=== PATIENT | female | born 1990 | race Caucasian/White ===

== ENCOUNTER 2017-06-02 23:57 | Emergency (ER) | payer SELFPAY ==
[2017-06-03] MEDS ORDERED: Amoxicillin/Clavulanate TAB* 875 MG PO ONE (01:06)
[2017-06-03] MEDS ORDERED: Tetan/Diph/Pertus SYR(Tdap)* 0.5 ML SYR(BOOSTRIX) use SYR IM ONE (01:17)
--- NOTE | 2017-06-03 01:19 | ED ---
Bite Injury/Animal - HPI Summary HPI Summary: 26F presents with dog bite to left thumb and index finger. 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 Her tetanus was in 2009. She cleaned area with chlorhexidine and betadaine. She has had rabies ppx. the end up euthanizing the dog. She denies any allergies. She has no medically conditions. She does not believe dog has rabies. - History of Current Complaint Chief Complaint: EDAnimalBite Stated Complaint: DOG BITE Time Seen by Provider: 06/03/17 01:06 Pain Intensity: 5 - Allergies/Home Medications Allergies/Adverse Reactions: Allergies Allergy/AdvReac Type Severity Reaction Status Date / Time No Known Allergies Allergy Verified 06/03/17 00:08 PMH/Surg Hx/FS Hx/Imm Hx Endocrine/Hematology History: Denies: Hx Anticoagulant Therapy Cardiovascular History: Denies: Hx Hypertension - Immunization History Date of Tetanus Vaccine: within 5 years Immunizations Up to Date: Yes Infectious Disease History: No Infectious Disease History: Denies: Traveled Outside the [place] in Last 30 Days - Family History Known Family History: Negative: Diabetes - Social History Alcohol Use: Occasionally Substance Use Type: Reports: None Smoking Status (MU): Never Smoked Tobacco Review of Systems Negative: Fever Negative: Chest Pain Negative: Shortness Of Breath Positive: Other - abrasions to left thumb and index finger All Other Systems Reviewed And Are Negative: Yes Physical Exam Triage Information Reviewed: Yes Vital Signs On Initial Exam: Initial Vitals Temp Pulse Resp BP Pulse Ox 97.6 F 74 18 132/81 99 06/03/17 00:05 06/03/17 00:05 06/03/17 00:05 06/03/17 00:05 06/03/17 00:05 Vital Signs Reviewed: Yes Appearance: Positive: Well-Appearing Skin: Positive: Warm, Dry, Other - abrasion near left thumb, puncture wound left index finger Head/Face: Positive: Normal Head/Face Inspection Eyes: Positive: Normal, Conjunctiva Clear Respiratory/Lung Sounds: Positive: Clear to Auscultation, Breath Sounds Present Cardiovascular: Positive: Normal, RRR Musculoskeletal: Positive: Normal Neurological: Positive: Normal Psychiatric: Positive: Normal - Richard Coma Scale Coma Scale Total: 15 Diagnostics - Vital Signs Vital Signs Temp Pulse Resp BP Pulse Ox 06/03/17 00:05 97.6 F 74 18 132/81 99 - Laboratory Lab Statement: Any lab studies that have been ordered have been reviewed, and results considered in the medical decision making process. Bite Injury Course/Dx - Course Course Of Treatment: 26F presents with dog bite to left thumb and index finger. 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 Her tetanus was in 2009. She cleaned area with chlorhexidine and betadaine. She has had rabies ppx. the end up euthanizing the dog. She denies any allergies. She has no medically conditions. She does not believe dog has rabies. on exam abrasion to left thumb and left index finger near nail. she already cleaned wound so gave tetanus and augmentin. told to continue keeping it clean and to watch for any signs of infection. patient understand and agrees with plan. - Diagnoses Differential Diagnosis/HQI/PQRI: Positive: Crush Injury, Laceration, Puncture, Other - abrasion Provider Diagnosis: Dog bite Discharge - Discharge Plan Condition: Good Disposition: HOME Prescriptions: Amoxicillin/Clavulanate TAB* [Augmentin TAB 875*] 875 mg PO BID #9 tab Patient Education Materials: Animal Bite (ED) Referrals: No Primary Care Phys,NOPCP [Primary Care Provider] - Additional Instructions: Wash area with soap and water twice a day Place Neosporin on area Take augmentin twice a day for 5 days Return to ED if develop any sign of infection such as spreading redness, pus, or fever, or any new or worsening symptoms
[2017-06-03 01:49] VITALS: BP 121/68
== END 2017-06-03 01:50 | disposition home or self-care (01) ==
LOC: ED 23:57
DX: S61.052A Open bite of left thumb without damage to nail, initial encounter (principal); S61.251A Open bite of left index finger without damage to nail, initial encounter; W54.0XXA Bitten by dog, initial encounter; Y92.9 Unspecified place or not applicable
CPT/HCPCS: 90471; 90715; 99282; A9270-GY